=== PATIENT | female | born 1975 | race Caucasian/White ===

== ENCOUNTER 2022-01-25 12:55 | Outpatient (CLI) | payer BC, SELFPAY ==
[2022-01-25 12:49] LABS: Chloride* 102 mmol/L (96-114)
[2022-01-25 12:50] LABS: Albumin* 4.7 g/dL (3.3-5.0)
[2022-01-25 12:53] LABS: Alanine Aminotransferase* 19 U/L (4-35); Alkaline Phosphatase* 51 U/L (40-150); Aspartate Amino Transferase* 28 U/L (12-35); Bilirubin Total* 1.4 mg/dL (0.1-1.5); Blood Urea Nitrogen* 16 mg/dL (5-24); Carbon Dioxide* 26 mmol/L (20-32); Cholesterol* 223 mg/dL (90-199); Creatinine* 0.6 mg/dL (0.5-1.5); Estimated Glomerular Filt Rate 113 ml/min; Glucose* 98 mg/dL (60-115); Total Protein* 7.1 g/dL (6.0-8.3)
[2022-01-25 12:54] LABS: Calcium* 9.5 mg/dL (8.4-10.6); HDL Cholesterol* 67 mg/dL (>=50); LDL Cholesterol Calculated 142 mg/dL (<100); Triglycerides* 72 mg/dL (40-149)
[2022-01-25 13:44] LABS: Sodium* 137 mmol/L (135-149)
== END 2022-01-25 12:56 | disposition home or self-care (01) ==
PROVIDERS: PCP Physician Assistant Medical; Visit Provider Physician Assistant Medical
DX: Z01.419 Encounter for gynecological examination (general) (routine) without abnormal findings (principal); E78.00 Pure hypercholesterolemia, unspecified; L30.9 Dermatitis, unspecified
CPT/HCPCS: 80053; 80061

== ENCOUNTER 2022-03-10 13:14 | Outpatient (CLI) | payer BC, SELFPAY ==
--- NOTE | 2022-03-10 13:20 | CRLHL7_ITS ---
For Patients: As a result of the Century Cures Act, medical imaging exams and procedure reports are released immediately into your electronic medical record. You may view this report before your referring provider. If you have questions, please contact your health care provider. BILATERAL SCREENING MAMMOGRAM WITH COMPUTER-AIDED DETECTION AND TOMOSYNTHESIS TECHNIQUE: CC, MLO and Implant displaced views were obtained. These mammographic images have been obtained using full-field digital technique. These mammographic images were interpreted with the benefit of computer-aided detection. Breast Tomosynthesis was used in this interpretation. COMPARISON FILM: 03/08/21, 02/18/20, 11/19/18. FINDINGS: The breasts are heterogeneously dense, which may obscure small masses IMPRESSION: There is no radiographic evidence for malignancy. ASSESSMENT: BI-RADS Category 2: Benign RECOMMENDATION: Routine screening mammogram in 1 year. A lay language report of this examination will be provided to the patient. Daryl Palmer M.D. Diagnostic Radiologist [email or web address] STARR/Dictated by: Daryl Palmer MD @ 03/13/2022 8:48:00 AM (Electronically Signed)
== END 2022-03-10 13:15 | disposition home or self-care (01) ==
LOC: MAMMO 13:15
PROVIDERS: PCP Physician Assistant Medical; Visit Provider Physician Assistant Medical
DX: Z12.31 Encounter for screening mammogram for malignant neoplasm of breast (principal); R92.2 Inconclusive mammogram
CPT/HCPCS: 77063; 77067

== ENCOUNTER 2023-02-05 14:54 | Outpatient (CLI) | payer BC, SELFPAY ==
--- NOTE | 2023-02-05 15:00 | CRLHL7_ITS ---
For Patients: As a result of the Cures Act, medical imaging exams and procedure reports are released immediately into your electronic medical record. You may view this report before your referring provider. If you have questions, please contact your health care provider. INDICATION: Pelvic and perineal pain. Inguinal hernia. Prior section. TECHNIQUE: Noncontrast CT of the pelvis and hips. FINDINGS: No inguinal hernia. The visualized included abdominal wall musculature is normal/intact. The visualized small large bowel loops are unremarkable. The urinary bladder, uterus, and ovaries are within normal limits. Normal included skeleton. IMPRESSION: Negative CT of the pelvis and hips. Please note that all CT scans at this facility use dose modulation, iterative reconstruction, and/or weight-based dosing when appropriate to reduce radiation dose to as low as reasonably achievable. Dictated by Uri Carter MD @ 02/06/2023 11:32:52 AM (Electronically Signed)
== END 2023-02-05 14:55 | disposition home or self-care (01) ==
LOC: CT 14:56
PROVIDERS: PCP Physician Assistant Medical; Visit Provider Nurse Practitioner Family
DX: R10.2 Pelvic and perineal pain (principal)
CPT/HCPCS: 72192

== ENCOUNTER 2023-02-22 08:10 | Outpatient (CLI) | payer BC, SELFPAY | END 2023-02-22 08:11 | disposition home or self-care (01) | LOC: NFLDREF 02-26 05:43 | PROVIDERS: PCP Physician Assistant Medical; Referring Provider Physician Assistant Medical; Visit Provider Physician Assistant Medical | DX: Z00.00 Encounter for general adult medical examination without abnormal findings (principal); R79.89 Other specified abnormal findings of blood chemistry; Z11.59 Encounter for screening for other viral diseases; Z11.3 Encounter for screening for infections with a predominantly sexual mode of transmission; Z13.6 Encounter for screening for cardiovascular disorders | CPT/HCPCS: 80048; 80061; 86703; 86803 ==

== ENCOUNTER 2023-02-28 16:59 | Outpatient (CLI) | payer BC, SELFPAY ==
[2023-02-28 23:23] LABS: Chlamydia DNA Amplified* NOT DETECTED (No Detected); GC DNA Amplified* NOT DETECTED (No Detected)
== END 2023-02-28 17:00 | disposition home or self-care (01) ==
LOC: LKVREF 17:00
PROVIDERS: PCP Physician Assistant Medical; Visit Provider Physician Assistant Medical
DX: Z11.3 Encounter for screening for infections with a predominantly sexual mode of transmission (principal)
CPT/HCPCS: 87491; 87591

== ENCOUNTER 2023-03-26 11:42 | Outpatient (CLI) | payer BC, SELFPAY | END 2023-03-26 11:43 | disposition home or self-care (01) | LOC: NFLDREF 13:24 | PROVIDERS: PCP Physician Assistant Medical; Visit Provider Obstetrics & Gynecology | DX: N88.9 Noninflammatory disorder of cervix uteri, unspecified (principal) | CPT/HCPCS: 87086 ==

== ENCOUNTER 2023-03-26 11:45 | Outpatient (CLI) | payer BC, SELFPAY ==
--- NOTE | 2023-03-26 13:40 | CRLHL7_ITS ---
For Patients: As a result of the Century Cures Act, medical imaging exams and procedure reports are released immediately into your electronic medical record. You may view this report before your referring provider. If you have questions, please contact your health care provider. BILATERAL SCREENING MAMMOGRAM WITH COMPUTER-AIDED DETECTION AND TOMOSYNTHESIS TECHNIQUE: CC, MLO and implant-displaced views were obtained. These mammographic images have been obtained using full-field digital technique. These mammographic images were interpreted with the benefit of computer-aided detection. Breast tomosynthesis was used in this interpretation. COMPARISON FILM: 03/10/22, 03/08/21, 02/18/20. FINDINGS: The breasts are heterogeneously dense, which may obscure small masses. IMPRESSION: There is no radiographic evidence for malignancy. ASSESSMENT: BI-RADS Category 2: Benign RECOMMENDATION: Routine screening mammogram in 1 year. A lay language report of this examination will be provided to the patient. DARYL GARRETT M.D. Diagnostic Radiologist [email or web address] SALAS/pablito Transcribed: 03/27/2023, 2:[address]/Dictated by: Daryl Garrett MD @ 03/27/2023 10:07:00 AM (Electronically Signed)
== END 2023-03-26 11:46 | disposition home or self-care (01) ==
LOC: MAMMO 11:46
PROVIDERS: PCP Physician Assistant Medical; Visit Provider Physician Assistant Medical
DX: Z12.31 Encounter for screening mammogram for malignant neoplasm of breast (principal); R92.2 Inconclusive mammogram
CPT/HCPCS: 77063; 77067; 87086

== ENCOUNTER 2023-12-06 09:52 | Outpatient (CLI) | payer BC, SELFPAY | END 2023-12-06 09:53 | disposition home or self-care (01) | LOC: LKVREF 09:52 | PROVIDERS: PCP Physician Assistant Medical; Visit Provider Emergency Medicine | DX: J34.89 Other specified disorders of nose and nasal sinuses (principal) | CPT/HCPCS: 87070 ==

== ENCOUNTER 2024-01-21 07:58 | Outpatient (CLI) | payer BC, SELFPAY | END 2024-01-21 07:59 | disposition home or self-care (01) | LOC: NFLDREF 01-23 11:31 | PROVIDERS: PCP Physician Assistant Medical; Referring Provider Physician Assistant Medical; Visit Provider Physician Assistant Medical | DX: E78.5 Hyperlipidemia, unspecified (principal); Z13.228 Encounter for screening for other metabolic disorders; Z13.29 Encounter for screening for other suspected endocrine disorder | CPT/HCPCS: 80053; 80061; 82306; 83695; 84443 ==

== ENCOUNTER 2024-05-27 13:15 | Outpatient (CLI) | payer BC, SELFPAY ==
--- NOTE | 2024-05-27 13:20 | CRLHL7_ITS ---
For Patients: As a result of the Century Cures Act, medical imaging exams and procedure reports are released immediately into your electronic medical record. You may view this report before your referring provider. If you have questions, please contact your health care provider. BILATERAL SCREENING MAMMOGRAM WITH COMPUTER-AIDED DETECTION AND TOMOSYNTHESIS TECHNIQUE: CC and MLO views were obtained. These mammographic images have been obtained using full-field digital technique. These mammographic images were interpreted with the benefit of computer-aided detection. Breast Tomosynthesis was used in this interpretation. COMPARISON FILM: 03/26/23, 03/10/22, 03/08/21. FINDINGS: The breasts are heterogeneously dense, which may obscure small masses. IMPRESSION: There is no radiographic evidence for malignancy. ASSESSMENT: BI-RADS Category 2: Benign RECOMMENDATION: Routine screening mammogram in 1 year. A lay language report of this examination will be provided to the patient. Daryl Palmer M.D. Diagnostic Radiologist [email or web address] SP/Dictated by: Daryl Palmer MD @ 05/29/2024 11:15:00 AM (Electronically Signed)
== END 2024-05-27 13:16 | disposition home or self-care (01) ==
LOC: MAMMO 13:17
PROVIDERS: PCP Physician Assistant Medical; Visit Provider Physician Assistant Medical
DX: Z12.31 Encounter for screening mammogram for malignant neoplasm of breast (principal); R92.333 Mammographic heterogeneous density, bilateral breasts
CPT/HCPCS: 77063; 77067